=== PATIENT | female | born 1975 | race Hispanic/Latino ===

== ENCOUNTER 2022-07-17 13:17 | Emergency (ER) | payer SELFPAY ==
[~2022-07-17] VITALS: Ht 160 cm; Wt 81.6 kg
[2022-07-17] VITALS (19 sets, daily range): BP systolic 104–138; BP diastolic 55–105
[~2022-07-17 13:17] MED LIST: LORTAB5 PO; MAG OXIDE400 MG PO; ZOFRAN4 MG/TAB PO
[2022-07-17 14:27] LABS: BASO% 0.6 % (0-3); EOS% 1.8 % (0-8); HEMATOCRIT 42.8 % (37.0-47.0); HEMOGLOBIN 13.7 g/dl (12.0-16.0); IMMATURE GRANULOCYTES 0.3 % (0.0-5.0); LYMPH% 29.4 % (15-41); MEAN CELL VOLUME 93.9 fL CALC (80.0-100.0); MONO% 6.4 % (2-13); NEUT# 5.36 thou/uL (2.00-7.15); NEUT% 61.5 % (42-76); RED BLOOD COUNT 4.56 mill/uL (4.20-5.60); RED CELL DISTRI WIDTH 13.5 % (11.5-15.5)
[2022-07-17 15:46] LABS: ALBUMIN 4.8 g/dL (3.2-5.0); ALKALINE PHOSPHATASE 97 u/l (38-126); ANION GAP 14 (6-22 (CALC)); BUN 6 mg/dL (7-17); BUN/CREATININE RATIO 8 (12-20 (CALC)); CARBON DIOXIDE 28 mmol/l (22-30); CHLORIDE 105 mmol/l (95-108); CREATININE 0.7 mg/dL (0.5-1.0); GFR FOR AFR.AMER. > 60 ML/MIN (>=60 (CALC)); GFR OTHER RACES > 60 ML/MIN (>=60 (CALC)); POTASSIUM 3.6 mmol/l (3.5-5.1); SGOT/AST 30 u/l (14-36); SODIUM 143 mmol/l (137-146)
[2022-07-17 15:49] LABS: BILIRUBIN, TOTAL 0.2 mg/dL (0.02-1.3)
[2022-07-17] MEDS ORDERED: METFORMIN500 M2 PO (19:29)
[2022-07-17] MEDS ORDERED: METRONIDAZOLE500 MG PO (19:58)
[2022-07-17] MEDS ORDERED: CIPROFLOXACN750 MG PO (19:58)
[2022-07-17] MEDS ORDERED: TRAMADOL HYDROC50 M1 PO (20:01)
== END 2022-07-17 21:02 | disposition home or self-care (01) | DRG 392 ==
LOC: ED 13:17 → ED-I 19:30 → ED 21:02
PROVIDERS: Family Medicine
DX: K52.9 Noninfective gastroenteritis and colitis, unspecified (principal); Z90.49 Acquired absence of other specified parts of digestive tract
CPT/HCPCS: Q9967

== ENCOUNTER 2024-02-09 13:55 | Observation (INO) | payer BC ==
[~2024-02-09] VITALS: Ht 160 cm; Wt 76.0 kg
[~2024-02-09 13:55] MED LIST changes: +CIPROFLOXACN750 MG PO; +METFORMIN500 M2 PO; +METRONIDAZOLE500 MG PO; +TRAMADOL HYDROC50 M1 PO
[2024-02-09] MEDS ORDERED: NITROGLYCERIN 0.4 MG/TAB SL ONE (14:25)
[2024-02-09] MEDS ORDERED: ASPIRIN 81 MG/TAB PO ONE (14:25)
--- NOTE | 2024-02-09 14:25 | NUR ---
pt to the ed for substernal cp. with no radiation. the cp is sharp in nature. pt states she developed the pain yesterday, pt took a xanax and a tramdol with some relief. shortness of breath with exertion. gcs 15. pupils perrla. no abd pain. no n/v. no fever.
[2024-02-09 14:39] LABS: BASO% 0.7 % (0-3); EOS% 2.3 % (0-8); HEMOGLOBIN 13.4 g/dl (12.0-16.0); LYMPH% 31.6 % (15-41); MEAN CELL VOLUME 96.2 fL CALC (80.0-100.0); MEAN CORPUSCULAR HGB 31.5 pG CALC (26.0-32.0); MEAN CORPUSCULAR HGB CONC 32.7 g/dL CAL (32.0-36.0); MONO% 6.8 % (2-13); NEUT# 4.28 thou/uL (2.00-7.15); NEUT% 58.6 % (42-76); RED BLOOD COUNT 4.26 mill/uL (4.20-5.60); RED CELL DISTRI WIDTH 13.3 % (11.5-15.5)
[2024-02-09 14:52] LABS: ALBUMIN 4.1 g/dL (3.2-5.0); ALKALINE PHOSPHATASE 100 u/l (38-126); ANION GAP 13 (6-22 (CALC)); BUN 9 mg/dL (7-17); BUN/CREATININE RATIO 12 (12-20 (CALC)); CARBON DIOXIDE 27 mmol/l (22-30); CHLORIDE 102 mmol/l (95-108); CREATININE 0.8 mg/dL (0.5-1.0); ESTIMATED GFR 91 ML/MIN (>=90 (CALC)); POTASSIUM 3.4 mmol/l (3.5-5.1); SGOT/AST 28 u/l (14-36); SODIUM 139 mmol/l (137-146)
[2024-02-09 14:55] LABS: BILIRUBIN, TOTAL 0.5 mg/dL (0.02-1.3)
--- NOTE | 2024-02-09 15:14 | NUR ---
pt states that she does not currently have pain.
[2024-02-09 15:15] LABS: LIPASE 107 u/l (23-300)
[2024-02-09 16:38] LABS: URINE BILIRUBIN - DIPSTICK Negative (NEGATIVE); URINE BLOOD DIPSTICK Negative (NEGATIVE); URINE COLOR Straw; URINE GLUCOSE - DIPSTICK Negative (NEGATIVE); URINE KETONE Negative (NEGATIVE); URINE LEUK ESTERASE Trace (NEGATIVE); URINE NITRITE - DIPSTICK Negative (Negative); URINE PROTEIN - DIPSTICK Negative (NEG-TRACE); URINE SPECIFIC GRAVITY <=1.005; URINE UROBILINOGEN - DIPSTICK 0.2 E.U./dL (0.2)
[2024-02-09] MEDS ORDERED: AMBIEN5 MG PO (18:59)
--- NOTE | 2024-02-09 19:03 | NUR ---
Assumed care of Pt. Alert, oriented Xs 3. Updated on plan to admit and continued wait time
[2024-02-09] MEDS ORDERED: MAGNESIUM HYDROXIDE 30 ML UDC PO PRN (19:05)
[2024-02-09] MEDS ORDERED: ACETAMINOPHEN 325 MG/TAB PO PRN (19:05)
[2024-02-09] MEDS ORDERED: Zaleplon 5 MG/CAP PO PRN (19:05)
[2024-02-09] MEDS ORDERED: ENOXAPARIN SODIUM 40 MG/0.4 ML SYR SC SCH (21:00)
--- NOTE | 2024-02-09 21:25 | NUR ---
Report called to [facility]
[2024-02-09 21:44] VITALS: BP 144/73
--- NOTE | 2024-02-09 22:05 | NUR ---
PATIENT CAME IN FROM ER IN WHEELCHAIR TO ROOM AT 2100. BED SIDE ASSESSMENT COMPLETE. A&O X4. PATIENT STATED SHE HAS A HEADACHE OF A 3, WILL REFER TO EMAR. EQUAL UNLABORED RESP, NO VISUAL SIGNS OF DISTRESS. BOWEL SOUNDS PRESENT. SOFT AND DISTENDED. PERIPHERAL PULSES EQUAL AND STRONG. NO COMPLAINTS OF CHEST PAIN. BED AT LOWEST POSITION. CALL LIGHT WITH IN REACH.
--- NOTE | 2024-02-10 00:38 | NUR ---
PATIENT IN ROOM RESTING IN BED AWAKE. PATIENT RESPONDS TO VERBAL STIMULI. CAN MAKE NEEDS KNOWN, NONE NEEDED AT THIS TIME. BED AT LOWEST POSITION. CALL LIGHT WITH IN REACH.
[2024-02-10 03:46] VITALS: BP 101/54
[2024-02-10 05:55] LABS: CHOLESTEROL HDL RATIO 2.1 (<4.4 (CALC)); MAGNESIUM 1.9 mg/dL (1.6-2.3)
[2024-02-10 07:02] VITALS: BP 124/68
--- NOTE | 2024-02-10 07:25 | NUR ---
PT SITTING UP IN THE BED WATCHING TV, PT A&O X3, NORMAL S1 S2 HEART SOUNDS, TELE MONITOR IN PLACE, RESP. EVEN AND UNLABORED, LUNG SOUNDS ARE CLEAR, ABD DISTENDED AND SOFT WITH ACTIVE BOWEL SOUNDS, STRONG RADIAL PULSES, WEAK PEDAL PULSES, 24G RH IV SL, SAFETY MEASURES REINFORCED, CALL KIRBY WITHIN REACH
[2024-02-10] MEDS ORDERED: ATORVASTATIN CA40 MG PO (08:44)
[2024-02-10 10:57] VITALS: BP 114/75
--- NOTE | 2024-02-10 12:00 | NUR ---
PT SITTING UP ON THE SIDE OF THE BED EATING LUNCH, PT DENIES ANY NEEDS AT THIS TIME, PT REMINDED TO CALL FOR ASSISTANCE, PT VERBALIZED UNDERSTANDING, CALL KIRBY WITHIN REACH
--- NOTE | 2024-02-10 12:15 | NUR ---
Discharge instructions given. Patient verbalizes understanding of same. Discharged in stable condition via Wheelchair to Home with family. All belongings sent with pt.
--- NOTE | 2024-02-12 13:30 | NUR ---
Discharge follow up call completed 02/12/24. Pt states she is doing well since discharge. Patient is taking prescribed medication as directed. Patient has a follow up appointment with her PCP on 02/16/24. No needs or concerns verbalized at this time. Pt expresses gratitude for follow up call.
== END 2024-02-10 12:15 | disposition home or self-care (01) | DRG 313 ==
LOC: ED 13:55 → ED-I 17:00 → MS2 17:38 → ED 17:38 → MS2 02-10 12:15
PROVIDERS: Nurse Practitioner; ADMIT Internal Medicine; ATTEND Internal Medicine
DX: R07.89 Other chest pain (principal); I10 Essential (primary) hypertension; E11.9 Type 2 diabetes mellitus without complications; E78.5 Hyperlipidemia, unspecified; F41.9 Anxiety disorder, unspecified; Z82.49 Family history of ischemic heart disease and other diseases of the circulatory system; Z79.84 Long term (current) use of oral hypoglycemic drugs
CPT/HCPCS: G0378; J1650